=== PATIENT | female | born 1980 | race African-American/Black ===

== ENCOUNTER 2018-03-10 21:13 | Inpatient (IN) | payer BC ==
[~2018-03-10] VITALS: Ht 175.3 cm; Wt 83.9 kg
[2018-03-10 00:45] VITALS: BP 104/72
[2018-03-10 21:30] VITALS: BP 86/69
[2018-03-10] MEDS ORDERED: LEVAQUIN 500 M500 M2 PO (21:38)
[2018-03-10] MEDS ORDERED: PROBIOTIC1 EAC1 PO (21:39)
[2018-03-10 21:56] LABS: ABSOLUTE BASOPHILS 0.1 thou/uL (0.0-0.2); ABSOLUTE EOSINOPHILS 0.4 thou/uL (0.0-0.7); ABSOLUTE LYMPHOCYTES 2.8 thou/uL (0.8-5.3); ABSOLUTE MONOCYTES 0.6 thou/uL (0.0-1.2); ABSOLUTE NEUTROPHILS 3.4 thou/uL (1.6-8.1); BASOPHILS 0.8 %; EOSINOPHILS 5.2 %; HEMATOCRIT 40.7 % (37.0-47.0); HEMOGLOBIN 13.4 gm/dL (12.0-15.0); LYMPHOCYTES 38.9 %; MONOCYTES 7.8 %; NUCLEATED RBCS 0 /100WBC; PLATELET COUNT* 259 thou/uL (150-400); POLYS 47.3 %; RBC 4.62 mil/uL (4.20-5.00); RDW-CV 13.1 % (10.5-14.5); WBC 7.2 thou/uL (4.0-11.0)
[2018-03-10 22:07] LABS: CALCIUM 8.5 mg/dL (8.5-10.1); POTASSIUM 3.8 mmol/L (3.5-5.1)
[2018-03-10 22:12] LABS: ALBUMIN 3.8 g/dL (3.4-5.0); TOTAL BILIRUBIN 0.5 mg/dL (<0.1-1.0); TOTAL PROTEIN 7.8 g/dL (6.4-8.2)
[2018-03-10 23:36] LABS: URINE BILIRUBIN NEGATIVE (Negative); URINE BLOOD NEGATIVE (Negative); URINE CLARITY CLEAR; URINE COLOR YELLOW; URINE GLUCOSE-RANDOM NEGATIVE (Negative); URINE KETONES NEGATIVE (Negative); URINE LEUKOCYTES-REFLEX TRACE (Negative); URINE NITRITE-REFLEX NEGATIVE (Negative); URINE PROTEIN NEGATIVE (Negative); URINE UROBILINOGEN 0.2 E.U./dl (0.2-1.0)
[2018-03-11] VITALS (9 sets, daily range): BP systolic 87–127; BP diastolic 46–86
[2018-03-11 00:06] LABS: CASTS None Seen /LPF (None Seen); SQUAMOUS >10 Many /LPF (0-3)
[2018-03-11 00:07] LABS: BACTERIA-REFLEX 1-9 Few /HPF (None Seen); CRYSTALS None Seen /LPF (None Seen); URINE RBC None Seen /HPF (0-2); URINE WBC-REFLEX 0-5 Rare /HPF (0-5)
[2018-03-11 01:35] LABS: HEMATOCRIT 36.5 % (37.0-47.0); HEMOGLOBIN 11.9 gm/dL (12.0-15.0); MCH 28.9 pg (26.0-34.0); MCHC 32.6 g/dL (28.0-37.0); MCV 88.6 fL (80.0-100.0); MPV 8.1 fl. (7.2-11.1); RBC 4.12 mil/uL (4.20-5.00); RDW-CV 12.9 % (10.5-14.5); WBC 6.8 thou/uL (4.0-11.0)
[2018-03-11 01:58] LABS: ALBUMIN 3.3 g/dL (3.4-5.0); CREATININE 0.9 mg/dL (0.6-1.3); POTASSIUM 3.9 mmol/L (3.5-5.1); TOTAL BILIRUBIN 0.4 mg/dL (<0.1-1.0); TOTAL PROTEIN 6.4 g/dL (6.4-8.2)
--- NOTE | 2018-03-11 02:07 | NUR ---
RECEIVED REPORT AND ASSUMED CARE OF PATIENT UPON ADMISSION TO ROOM 231 AT 0045. ADMISSION HISTORY AND ASSESSMENT COMPLETED CHARTED, VSS. BLOOD PRESSURE SLIGHTLY SOFT 104/72 WITH HR OF 66, CARDIZEM INFUSING AT 2.5 ML/HR. PATIENT REMAINS IN SR ON IMMIGRATION PATROL INSPECTOR. PATIENT DENIES CHEST PAIN AND DISCOMFORT AND SHORTNESS OF AIR. PATIENT ON ROOM AIR WITH SATS 97%. PATIENT ORIENTED TO ROOM AND CALL LIGHT. INSTRUCTED PATIENT TO UTILIZE CALL LIGHT FOR NEEDS, INCLUDING USING THE BATHROOM. PATIENT VERBALIZES UNDERSTANDING. GOAL IS FOR PATIENT TO REMAIN IN SR WITHOUT EPISODES OF SVT AND TOLERATION OF CARDIZEM GTT. CALL LIGHT WITHIN REACH
--- NOTE | 2018-03-11 04:14 | NUR ---
PATIENT WENT INTO SVT ON INBOUND CALL CENTER AGENT AT 0401. VITALS TAKEN AT THIS TIME, VSS. PATIENT ASYMPTOMATIC, DENIES CHEST PAIN, ALTHOUGH PATIENT COULD FEEL HER "HEART FLUTTERING." PATIENT INSTRUCTED TO PERFORM VAGAL MANEUVERS, SUCH BEARING DOWN. VALSALVA MANEUVER WAS SUCCESSFUL. PATIENT NOW IN SR
--- NOTE | 2018-03-11 04:44 | NUR ---
PATIENT HAD ANOTHER EPISODE ON THE CLINICAL TRIAL LEADER BEGINNING AT 417 . EKG OBTAINED AT THIS TIME, READING JUNCTIONAL TACHYCARDIA WITH A RATE OF 133. VALSALVA MANEUVER ATTEMPTED AGAIN WITH NO SUCCESS. CARDIZEM GTT INCREASED TO 10 ML/HR. BLOOD PRESSURE 120/82. PATIENT CONVERTED TO SR AT 0430.
--- NOTE | 2018-03-11 08:15 | NUR ---
PATIENT NOT PROGRESSING TOWARDS GOALS: PATIENT CONTINUES TO GO IN AND OUT OF JUNCTIONAL RHYTHM, RATES UP TO 130'S-140'S AT TIMES. CARDIZEM CONTINUES TO INFUSE AT 10 MG/HR. PATIENT DENIES CHEST PAIN BUT DID HAVE C/O HEADACHE THIS AM, MORPHINE ADMINISTERED WITH RELIEF. REPORT GIVEN TO ONCOMING RN. CALL LIGHT WITHIN REACH
--- NOTE | 2018-03-11 08:30 | NUR ---
ASSUMED CARE OF PT AT 0730. PT LYING IN BED. PT A&0X4, COMPLAINS OF HEADACHE WHICH STATES IS IMPROVING. PT RECEIVED IV MORPHINE PER NOC RN. PT TRACING SVT/ SR ON THE DIRECTOR DECISION SUPPORT. PT CONVERTS TO SR FOR A SHORT PERIOD OF TIME AND THEN BACK INTO SVT. REFER TO EKGS IN CHART. PT CURRENTLY ON CARDIZEM AT 10ML/HR. BLOOD PRESSURES TOLERATING. CARDIOLOGY CONSULT IN PLACE. PT NPO AT THIS TIME. PT ON RA SAT 98%. DENIES ANY SHORTNESS OF BREATH. PT UP SBA TO BATHROOM. PT STATES SHE HAS HAD LEFT RIB PAIN FOR APPROXIMATELY A MONTH. PALPABLE AREA NOTED UNDER LEFT BREAST/RIB AREA. WILL NOTIFY PHYSICIAN WHEN HE ROUNDS THIS AM. AM ASSESSMENT CHARTED. MEDICATIONS PER DEC. PT REPOSITIONS SELF. HOURLY ROUNDING OBSERVED. BED IN LOW POSITION. CALL LIGHT WITHIN REACH. WILL CONTINUE PLAN OF CARE.
--- NOTE | 2018-03-11 09:58 | EKG ---
[place] [address] ELECTROCARDIOGRAM REPORT Name: JOHN BARON Room: [address] ADM IN .R.#: [id number] Admission: 03/10/18 Attend Phys: Gurpreet Hernandes Discharge: Date of : 76 Report #: [id number] THIS REPORT FOR: //name// [facility] ED Test Date: 2018-03-10 Test Time: 21:41:46 Pat Name: JOHN BARON Department: Room: Gender: Systems Coordinator: PERRY : 1980 Requested By: Joanne Cummins Order Number: [id number] MD: Carson Rice Measurements Intervals [place] Rate: 157 P: 0 AK: 308 QRS: 51 QRSD: 69 T: 24 QT: 278 QTc: 450 Interpretive Statements Supraventricular tachycardia No previous ECG available for comparison Electronically Signed On 03-11-2018 9:57:53 CDT by Carson Rice [email or web address] <ELECTRONICALLY SIGNED> By: Carson Rice MD, [facility] 03/11/18 0957 2141 2141 Carson Rice MD, FACC /EPI
--- NOTE | 2018-03-11 09:58 | EKG ---
[place] [address] ELECTROCARDIOGRAM REPORT Name: JOHN BARON Room: [address] ADM IN M.R.#: [id number] Admission: 03/10/18 Attend Phys: Gurpreet Hernandes Discharge: Date of : 76 Report #: [id number] THIS REPORT FOR: //name// [facility] ED Test Date: 2018-03-10 Test Time: 22:02:27 Pat Name: JOHN BARON Department: Room: [address] Gender: F Silk Finisher: PERRY : 1980 Requested By: Joanne Cummins Order Number: [id number] Jing MD: Carson Rice Measurements Intervals [place] Rate: 72 P: 20 NE: 123 QRS: 38 QRSD: 92 T: 48 QT: 360 QTc: 394 Interpretive Statements Sinus rhythm Borderline repolarization abnormality Electronically Signed On 03-11-2018 9:58:43 CDT by Carson Rice [email or web address] <ELECTRONICALLY SIGNED> By: Carson Rice MD, [facility] 03/11/18 0958 2202 2202 Carson Rice MD, FACC /EPI
--- NOTE | 2018-03-11 12:28 | NUR ---
MET WITH PT TO DISCUSS HOME SITUATION/DC PLANNING. PT LIVES WITH HER 2 CHILDREN, 9 AND 15. SHE IS INDEPENDENT AND ACTIVE, USES NO EQUIPMENT. PT FOLLOWS WITH DR PEDERSEN, BUT STATES SHE DID SEE DR ENGLISH'S BEAUTY COUNSELOR RECENTLY TO GET MEDS FILLED. PT PLANS TO RETURN HOME AT DC. DENIES NEEDS
--- NOTE | 2018-03-11 13:05 | NUR ---
Nutrition: Pt admitted with chest pain - no UT, no CHF. Consult received for "poor po." Pt stated she is eating well at lunch. Regular diet ordered. RX noted, jazmyn. Alb 3.3, BG 100. Reweighed pt in bed, 183# today. US ordered outpatient. Pt denied any nutrition questions/concerns. Low nutrition risk.
--- NOTE | 2018-03-11 13:20 | 2DMMODE ---
[place] [address] 2 D/M-MODE ECHOCARDIOGRAM Name: JOHN BARON Room: [address] ADM IN Josefina#: [id number] Admission: 03/10/18 Attend Phys: Amador Fierro Discharge: Date of : 76 Date of Service: 03/11/18 1319 Report #: [id number] THIS REPORT FOR: //name// APPROVED REPORT Study performed: 03/11/2018 11:53:38 EXAM: Comprehensive 2D, Doppler, and color-flow Echocardiogram Patient Location: In-Patient Room #: [facility] Status: routine BSA: 2.00 HR: 52 bpm BP: 106/68 mmHg Rhythm: NSR Other Information Study Quality: Good Indications Abnormal ECG 2D Dimensions LVEF(%): 68.41 (>50%) IVSd: 9.69 (7-11mm) LVOT Diam: 19.84 (18-24mm) LVDd: 43.12 mm PWd: 7.58 (7-11mm) Ascending Ao: 22.41 (22-36mm) LVDs: 26.75 (25-40mm) Aortic Root: 29.01 mm Benavidez's LVEF: 68.41 % Volumes Left Atrial Volume (Systole) LA ESV Index: 27.00 mL/m2 Aortic Valve AoV Peak Brayan.: 1.34 m/s AO Peak Gr.: 7.16 mmHg LVOT Max P.90 mmHg AO Mean Gr.: 3.69 mmHg LVOT Mean P.99 mmHg LVOT Max V: 1.11 m/s AO V2 VTI: 22.53 cm LVOT Mean V: 0.63 m/s TANIA (VTI): 2.79 cm2 LVOT V1 VTI: 20.36 cm Mitral Valve E/A Ratio: 1.59 [place] [address] 2 D/M-MODE ECHOCARDIOGRAM Name: JOHN BARON Room: [address] IN .R.#: [id number] Admission: 03/10/18 Attend Phys: Amador Fierro Discharge: Date of : 76 Date of Service: 03/11/18 1319 Report #: [id number] MV Decel. Time: 232.06 ms MV E Max Brayan.: 0.81 m/s MV PHT: 67.30 ms MVA (PHT): 3.27 cm2 TDI E/Lateral E': 5.40 E/Medial E': 5.79 Medial E' Brayan.: 0.14 m/s Lateral E' Brayan.: 0.15 m/s Pulmonary Valve PV Peak Brayan.: 0.87 m/s PV Peak Gr.: 3.03 mmHg Left Ventricle The left ventricle is normal size. There is normal LV segmental wall motion. There is normal left ventricular wall thickness. Left ventricular systolic function is normal. The left ventricular ejection fraction is within the normal range. LVEF is 55-60%. The left ventricular diastolic function is normal. Right Ventricle The right ventricle is normal size. The right ventricular systolic function is normal. Atria The left atrium size is normal. The right atrium size is normal. Aortic Valve The aortic valve is normal in structure. No aortic regurgitation is present. There is no aortic valvular stenosis. Mitral Valve The mitral valve is normal in structure. There is no mitral valve regurgitation noted. No evidence of mitral valve stenosis. Tricuspid Valve The tricuspid valve is normal in structure. Unable to assess PA pressure. Trace tricuspid regurgitation. Pulmonic Valve The pulmonary valve is normal in structure. Trace pulmonic regurgitation. Great Vessels The aortic root is normal in size. IVC [place] [address] 2 D/M-MODE ECHOCARDIOGRAM Name: JOHN BARON Room: [address] IN .R.#: [id number] Admission: 03/10/18 Attend Phys: Amador Fierro Discharge: Date of : 76 Date of Service: 03/11/18 1319 Report #: [id number] collapses with >50% inspiration Pericardium There is no pericardial effusion. <Conclusion> Left ventricular systolic function is normal. The left ventricular ejection fraction is within the normal range. <ELECTRONICALLY SIGNED> By: Carson Rice MD, FACC 03/11/18 1319 18 18 Carson Rice MD, FACC /INF
--- NOTE | 2018-03-11 13:35 | EKG ---
[place] [address] ELECTROCARDIOGRAM REPORT Name: JOHN BARON Room: [address] ADM IN M.R.#: [id number] Admission: 03/10/18 Attend Phys: Gurpreet Hernandes Discharge: Date of : 76 Report #: [id number] THIS REPORT FOR: //name// [facility] Test Date: 2018-03-11 Test Time: 04:27:01 Pat Name: JOHN BARON Department: Room: [address] Gender: F Manager New Product: TANA : 1980 Requested By: Amador Fierro Order Number: [id number] Reading MD: Carson Rice Measurements Intervals [place] Rate: 133 P: MN: QRS: 54 QRSD: 99 T: 64 QT: 296 QTc: 441 Interpretive Statements Junctional tachycardia Minimal ST depression, lateral leads Compared to ECG 03/10/2018 22:02:27 Junctional tachycardia now present ST (T wave) deviation now present Sinus rhythm no longer present Electronically Signed On 03-11-2018 13:35:16 CDT by Carson Rice [email or web address] <ELECTRONICALLY SIGNED> By: Carson Rice MD, [facility] 03/11/18 1335 0427 0427 Carson Rice MD, [facility] /EPI
--- NOTE | 2018-03-11 16:56 | NUR ---
NO ACUTE CHANGES THROUGHOUT SHIFT. REFER TO CHARTING. PT STARTED ON SOTALOL PER CARDIOLOGY. PT CONVERTED TO SR AND HAS REMAINED IN SR/SB ON THE SECURITY GUARDS DISPATCHER. CARDIZEM GTT DISCONTINUED. PT HAD ECHO TODAY-EF 55-60%. INPT CARDIAC REHAB CONSULTED AND VISITED WITH PT. PT HAD XRAY OF RIBS FOR LEFT RIB/BREAST PAIN- UNREMARKABLE. REFER TO RESULTS. PT COMPLAINS OF HEADACHE, TREATED WITH PRN TYLENOL. REFER TO EMAR. PT ON RA SAT UPPER 90'S. VISITORS AT BEDSIDE THROUGHOUT SHIFT. PT HAD SHOWER INDEPENDENTLY TODAY. MEDICATIONS PER DEC. PT REPOSITIONS SELF. HOURLY ROUNDING OBSERVED. BED IN LOW POSITION. CALL LIGHT WITHIN REACH. WILL CONTINUE PLAN OF CARE.
[2018-03-12] VITALS (7 sets, daily range): BP systolic 105–126; BP diastolic 48–76
--- NOTE | 2018-03-12 05:43 | NUR ---
END SHIFT: PT RESTED WELL. NO COMPLAINTS. NO PAIN. REMAINS SB RATE 50'S. VSS. ASSESSMENT UNCHANGED. FRIEND AT BEDSIDE OVERNIGHT. PLANS TO DC HOME AFTER SOTALOL LOADING. SAFETY PRECAUTIONS IN PLACE. CALL LIGHT IN REACH. WILL CONT TO MONITOR.
--- NOTE | 2018-03-12 11:38 | EKG ---
[place] [address] ELECTROCARDIOGRAM REPORT Name: JOHN BARON Room: [address] ADM IN M.R.#: [id number] Admission: 03/10/18 Attend Phys: Gurpreet Hernandes Discharge: Date of : 76 Report #: [id number] THIS REPORT FOR: //name// [facility] Test Date: 2018-03-12 Test Time: 08:24:32 Pat Name: JOHN BARON Department: Room: [address] Gender: F Counterintelligence Analyst: : 1980 Requested By: Carson Rice Order Number: [id number] Jing MD: Carson Rice Measurements Intervals [place] Rate: 54 P: 60 [place]: 108 QRS: 61 QRSD: 118 T: 56 QT: 467 QTc: 443 Interpretive Statements Sinus bradycardia short pr interval Compared to ECG 03/11/2018 04:27:01 Junctional tachycardia no longer present Electronically Signed On 03-12-2018 11:38:07 CDT by Carson Rice [email or web address] <ELECTRONICALLY SIGNED> By: Carson Rice MD, [facility] 03/12/18 1138 3 3 Carson Rice MD, [facility] /EPI
--- NOTE | 2018-03-12 13:47 | NUR ---
ASSUMED CARE OF PT AT 0730. PT RESTING IN BED. FRIEND AT BEDSIDE. PT A&0X4. COMPLAINS OF HEADACHE, TREATED WITH PRN TYLENOL WITH RELIEF. PT TRACING SB ON THE BUNDLE CUTTER. RATE IN THE 50'S. PT ON SOTALOL LOAD. RECEIVED THIRD DOSE THIS AM. PT ON RA SAT UPPER 90'S. DENIES ANY SHORTNESS OF BREATH. PT UP AD BIBI IN ROOM. AM ASSESSMENT CHARTED. MEDICATIONS PER DEC. PT REPOSITIONS SELF. HOURLY ROUNDING OBSERVED. BED IN LOW POSITION. CALL LIGHT WITHIN REACH. WILL CONTINUE PLAN OF CARE.
--- NOTE | 2018-03-12 18:09 | NUR ---
NO ACUTE CHANGES THROUGHOUT SHIFT. REFER TO CHARTING. PT CONTINUES TO BE ON SOTALOL LOAD. BLOOD PRESSURE STABLE. CONTINUES TO TRACE SB ON THE FULL STACK JAVA DEVELOPER. MONITORING QT INTERVAL. PT REQUESTING SOMETHING FOR YEAST TYPE SYMPTOMS. DR ALEXANDER NOTIFIED. ORDERS RECEIVED FOR MONISTAT AT BEDTIME. PT DENIES ANY PAIN OR SHORTNESS OF BREATH THROUGHOUT AFTERNOON. VISITORS AT BEDSIDE THROUGHOUT SHIFT. PT SHOWERED INDEPENDENTLY TODAY. PT UP AD BIBI. PROGRESSING TOWARDS GOALS. PORBABLE DISCHARGE HOME TOMORROW 03/13. MEDICATIONS PER DEC. PT REPOSITIONS SELF. HOURLY ROUNDING OBSERVED. BED IN LOW POSITION. CALL LIGHT WITHIN REACH. WILL CONTINUE PLAN OF CARE.
--- NOTE | 2018-03-12 19:20 | NUR ---
THIS RN, PT AND PT BOYFRIEND WERE CONVERSATING FOR APPROXIMATELY 15 MINUTES REGARDING WHAT SHE HAS PLANNED WHEN SHE IS DISCHARGED, HOW SHE IS EXCITED TO WORK OUT AGAIN, ALL OF HER VISITORS SHE HAD TODAY COUSIN HAD GRADUATION, ETC. APPROXIMATELY 10 MINUTES AFTER LEAVING PT ROOM, PT CALLED THIS RN STATING SHE FEELS LIKE HER HEART IS RACING AND SHE FEELS PALPITATIONS. BLOOD PRESSURE OBTAINED- 126/48. EKG OBTAINED TRACING SVT. RATE 147. PT ENCOURAGED TO RELAX. PAGE PLACED OUT TO DR TREVINO. CALL RETURNED. ORDERS RECEIVED TO START CARDIZEM GTT-BOLUS OF 15MG AND START AT 5ML/HR. IF BLOOD PRESSURE >100 AND HEART RATE > 120 INCREASE CARDIZEM GTT TO 10ML/HR. DR TREVINO GAVE PERSONAL NUMBER TO CALL IF NEEDED TONIGHT. BOLUS AND CARDIZEM GTT STARTED ON PT. BLOOD PRESSURES REMAIN STABLE AT THIS TIME. PT COMPLAINED OF HEADACHE AND SHORTNESS OF BREATH. HEADACHE TREATED WITH PRN TYLENOL AND PT PLACED ON 2L NC FOR COMFORT. SAT 99%. REPORT GIVEN TO ONCOMING SHIFT.
[2018-03-13] VITALS: BP 104/49
[2018-03-13 04:00] VITALS: BP 93/54
--- NOTE | 2018-03-13 05:12 | NUR ---
PATIENT DILTIAZEM HELD STARTING AT 0400 DUE TO LOW BLOOD PRESSURE, PATIENT ALSO RUNS GRACIA CARDIA AT TIMES.
--- NOTE | 2018-03-13 05:43 | NUR ---
PATIENT RESTED IN BED, NO ACUTE CHANGES. PATIENT DID NOT SHOW SIGNS OF DISTRESS. PATIENT HEART RATE IS SINUS TO SINUS GRACIA. PATIENT DILTIAZEM DRIP HELD AT 0400 DUE TO LOW BLOOD PRESSURE THAT FEW BELOW 100. FALL PRECAUTIONS, IN PLACE, CALL LIGHT WITHIN REACH, HOURLY ROUNIDNG OBSERVED.
[2018-03-13 08:00] VITALS: BP 101/63
--- NOTE | 2018-03-13 11:34 | NUR ---
ASSUMED CARE OF PT AT 0730. PT RESTING IN BED. BOYFRIEND AT BEDSIDE. PT A&0X4. DENIES ANY PAIN OR SHORTNESS OF BREATH AT THIS TIME. PT STATES SHE WANTS THE BEST TREATMENT POSSIBLE AND TO POSSIBLY GO HOME. DR TREVINO HERE TO SEE PT AND STATES PT CAN GO HOME LATER THIS AFTERNOON AFTER RECEIVING SOTALOL AND AMBULATING IN HALLWAY. WILL ALSO MONITOR FOR ADDITIONAL EPISODES OF SVT. PT TRACING SB ON THE SENIOR CYBER SECURITY ANALYST. RATE IN THE 50'S. PT ON RA SAT UPPER 90'S. PT STATED SHE HAD A BOWEL MOVEMENT YESTERDAY-CONSTIPATION HAS IMPROVED. PT UP AD BIBI IN ROOM. AM ASSESSMENT CHARTED. MEDICATIONS PER DEC. PT REPOSITIONS SELF. HOURLY ROUNDING OBSERVED. BED IN LOW POSITION. CALL LIGHT WITHIN REACH. WILL CONTINUE PLAN OF CARE.
[2018-03-13 12:08] VITALS: BP 120/57
[2018-03-13 13:46] VITALS: BP 120/57
[2018-03-13] MEDS ORDERED: SORINE 80 MG TA80 M1 PO (13:52)
[2018-03-13] MEDS ORDERED: TYLENOL325 MG PO (13:53)
--- NOTE | 2018-03-13 14:39 | NUR ---
DISCHARGE ORDERS RECEIVED. DISCHARGE INSTRUCTIONS, CARE NOTES, SCRIPT AND FOLLOW UP APPTS GIVEN TO PT. PT COMMUNICATES UNDERSTANDING OF DISCHARGE TEACHING. IV AND SPEED BELT SANDER REMOVED. PT DISCHARGED WITH ALL BELONGINGS AND PAPERWORK VIA AMBULATORY WITH NURSING STAFF TO BOYFRIENDS PERSONAL CAR.
--- NOTE | 2018-03-13 14:50 | EKG ---
[place] [address] ELECTROCARDIOGRAM REPORT Name: JOHN BARON Room: [address] ADM IN M.R.#: [id number] Admission: 03/10/18 Attend Phys: Gurpreet Hernandes Discharge: Date of : 76 Report #: [id number] THIS REPORT FOR: //name// [facility] Test Date: 2018-03-12 Test Time: 19:14:53 Pat Name: JOHN BARON Department: Room: [address] Gender: F Trauma Coordinator: DOMENIC : 1980 Requested By: Amador Fierro Order Number: [id number] Jing MD: Carson Rice Measurements Intervals [place] Rate: 147 P: 0 PA: QRS: 55 QRSD: 68 T: 88 QT: 296 QTc: 463 Interpretive Statements Supraventricular tachycardia Probable LVH with secondary repol abnrm Compared to ECG 03/12/2018 08:24:32 Sinus bradycardia no longer present Short PA interval no longer present Electronically Signed On 03-13-2018 14:50:08 CDT by Carson Rice [email or web address] <ELECTRONICALLY SIGNED> By: Carson Rice MD, [facility] 03/13/18 1450 13 Carson Rice MD, [facility] /EPI
--- NOTE | 2018-03-13 14:53 | EKG ---
[place] [address] ELECTROCARDIOGRAM REPORT Name: JOHN BARON Room: [address] ADM IN M.R.#: [id number] Admission: 03/10/18 Attend Phys: Gurpreet Hernandes Discharge: Date of : 76 Report #: [id number] THIS REPORT FOR: //name// [facility] Test Date: 2018-03-12 Test Time: 20:15:26 Pat Name: JOHN BARON Department: Room: [address] Gender: F Meat Grinder: ALEXANDER : 1980 Requested By: Amador Fierro Order Number: [id number] Jing MD: Carson Rice Measurements Intervals [place] Rate: 56 P: 32 [place]: 108 QRS: 31 QRSD: 110 T: 33 QT: 449 QTc: 434 Interpretive Statements Sinus bradycardia short pr interval Electronically Signed On 03-13-2018 14:53:15 CDT by Carson Rice [email or web address] <ELECTRONICALLY SIGNED> By: Carson Rice MD, [facility] 03/13/18 1453 14 14 Carson Rice MD, [facility] /EPI
--- NOTE | 2018-03-13 14:59 | EKG ---
[place] [address] ELECTROCARDIOGRAM REPORT Name: JOHN BARON Room: [address] ADM IN M.R.#: [id number] Admission: 03/10/18 Attend Phys: Gurpreet Hernandes Discharge: Date of : 76 Report #: [id number] THIS REPORT FOR: //name// [facility] Test Date: 2018-03-13 Test Time: 08:22:12 Pat Name: JOHN BARON Department: Room: [address] Gender: F Sales Marketing Director: : 1980 Requested By: Cesar Pierson Order Number: [id number] Jing MD: Carson Rice Measurements Intervals [place] Rate: 48 P: 58 [place]: 108 QRS: 49 QRSD: 112 T: 48 QT: 475 QTc: 425 Interpretive Statements Sinus bradycardia Short [place] interval Borderline intraventricular conduction delay Compared to ECG 03/12/2018 08:24:32 No significant changes Electronically Signed On 03-13-2018 14:58:52 CDT by Carson Rice [email or web address] <ELECTRONICALLY SIGNED> By: Carson Rice MD, [facility] 03/13/18 1458 1 1 Carson Rice MD, [facility] /EPI
--- NOTE | 2018-03-13 16:18 | CON ---
[address] [address] CONSULTATION Name: JOHN BARON Room: [address] IN M.R.#: [id number] Admission: 03/10/18 Attend Phys: Gurpreet Hernandes Discharge: 03/13/18 Date of : 76 Report #: [id number] THIS REPORT FOR: //name// CC: Sandra Wong DO Amador Fierro DATE OF SERVICE: 03/11/2018 CARDIOLOGY CONSULTATION HISTORY OF PRESENT ILLNESS: The patient is a 37-year-old single black female who I was asked to see in the hospital after she is noted to be tachycardic. The patient has no previous history of cardiac workup. She has noted in the past, however, she would feel like her heart beating fast, it lasts about a minute and then resolved. She usually takes a deep breath when it occurs. However, yesterday morning, she was at work at her desk when she felt her heart beating fast. It lasted all day long. She felt a little lightheaded and drowsy, but she denied any chest pain, shortness of breath, syncope. She finally came to the Emergency Room last night. She was noted to be in a narrow complex tachycardia at 160 beats per minute. It did appear regular. She was given adenosine and it terminated, however, recurred. She is given additional adenosine. Last night, she was admitted to a monitored bed and had recurrent narrow complex tachycardia. She was started on IV diltiazem. I was asked to see her for further evaluation and treatment. She denied a history of a heart murmur. She denies any exertional dyspnea, edema. She does exercise on a regular basis, going to the gym. She has had no recent fever. She does have a bump on the left side of her chest. Recently has been sore. She was recently placed on levofloxacin. She denied any drainage or redness. PAST MEDICAL HISTORY: She is , last menstrual period was a couple of weeks ago. She has had previous wrist surgery, sinus surgery, tubal ligation. She denied a history of hypertension, diabetes, hyperlipidemia. She is on no chronic medications. ALLERGIES: SHE HAS A PREVIOUS INTOLERANCE TO PENICILLIN AND KEFLEX. FAMILY HISTORY: Her daughter had pulmonic stenosis. Her grandmother had a heart attack. SOCIAL HISTORY: She is , lives with her kids in [place], [place]. She has a desk job. She does not smoke, rarely drinks alcohol. No caffeine. She smokes marijuana occasionally. No IV drugs. REVIEW OF SYSTEMS: She has had no history of stroke, asthma, peptic ulcer disease, liver disease, kidney disease, cancer, psychiatric illness, [place] [address] CONSULTATION Name: JOHN BARON Jad Room: [address] IN M.R.#: [id number] Admission: 03/10/18 Attend Phys: Gurpreet Hernandes Discharge: 03/13/18 Date of : 76 Report #: [id number] skin condition. PHYSICAL EXAMINATION: GENERAL: Revealed a middle-aged female who appeared in no distress. VITAL SIGNS: She had a blood pressure of 120/80, pulse is currently 130. She is afebrile. HEENT: She was anicteric, conjunctivae pink. Mucous members moist. NECK: Veins nondistended. No carotid bruits. Neck was Supple. LUNGS: Clear to auscultation. CARDIOVASCULAR: Regular tachycardia, no significant murmur. CHEST: There were no masses felt, it was somewhat tender. ABDOMEN: Soft. EXTREMITIES: Had no edema. Posterior tibial pulse 2+ bilaterally. IMAGING: Initial ECG showed a narrow complex tachycardia at 160 beats per minute, suggestive of a supraventricular tachycardia. Her workup in the emergency room yesterday, she had a CT scan of the chest using a PE protocol that was unremarkable. LABORATORY DATA: Sodium 141, creatinine 0.9. Liver function studies are normal. TSH 1.6. White blood cell count 6.8, hemoglobin 11.9. Urinalysis, trace leukocytes. IMPRESSION AND RECOMMENDATIONS: 1. Supraventricular tachycardia. Possible AV node reentry tachycardia. At this time, I would recommend starting sotalol. If the patient has recurrent episodes, would consider referral for an ablation. 2. Sore left chest. Unusual area for a lymph node. Suspect trauma. CT scan of the chest was unremarkable. <ELECTRONICALLY SIGNED> By: Carson Rice MD, FACC 03/13/18 1618 0912 [email or web address] Rice MD, FACC /nt
--- NOTE | 2018-03-14 14:10 | NUR ---
Spoke with patient by phone in follow up. She states she is doing well, got her medications filled and is taking them regularly. Denies that she has any episode of SVT, or fluttering feeling in her chest. Has a follow up appoinment scheduled with the digital developer. Has no questions or concerns at thsi time.
[2018-04-07] MEDS ORDERED: UNICOMPLEX M TA1 TA1 PO (07:20)
== END 2018-03-13 14:00 | disposition home or self-care (01) | DRG 310 ==
LOC: M.ERS 21:13 → M.TBA-ER 23:26 → M.2W 23:26
PROVIDERS: Emergency Medicine; ADMIT Internal Medicine
DX: I45.6 Pre-excitation syndrome (principal); R07.81 Pleurodynia; F12.10 Cannabis abuse, uncomplicated; Z79.01 Long term (current) use of anticoagulants; Z79.899 Other long term (current) drug therapy; Z88.1 Allergy status to other antibiotic agents; Z88.0 Allergy status to penicillin; Z83.2 Family history of diseases of the blood and blood-forming organs and certain disorders involving the immune mechanism

== ENCOUNTER 2018-03-21 11:34 | Observation (INO) | payer BC ==
[~2018-03-21] VITALS: Ht 177.8 cm; Wt 80.3 kg
--- NOTE | ~2018-03-21 | H ---
[address] [address] HISTORY AND PHYSICAL Name: JOHN BARON Room: [address] Tyler Burgess#: [id number] Admission: 03/21/18 Attend Phys: Carson Rice MD, F Discharge: 03/22/18 Date of : 76 Report #: [id number] THIS REPORT FOR: //name// For History and Physical please refer to the consultation note in the patient's medical record. By: 0621Medical Records Staff EVI /EHSAN
[~2018-03-21 11:34] MED LIST: LEVAQUIN 500 M500 M2 PO; PROBIOTIC1 EAC1 PO; SORINE 80 MG TA80 M1 PO; TYLENOL325 MG PO
[2018-03-21 11:36] VITALS: BP 124/79
[2018-03-21 11:54] LABS: HEMATOCRIT 39.8 % (37.0-47.0); MCH 29.1 pg (26.0-34.0); MCHC 32.7 g/dL (28.0-37.0); MCV 89.2 fL (80.0-100.0); MPV 8.7 fl. (7.2-11.1); NUCLEATED RBCS 0 /100WBC; PLATELET COUNT* 301 thou/uL (150-400); RBC 4.47 mil/uL (4.20-5.00); RDW-CV 12.8 % (10.5-14.5)
[2018-03-21 11:59] LABS: ANION GAP 7 mmol/L (7-16); BUN 10 mg/dL (7-18); CALCIUM 8.9 mg/dL (8.5-10.1); CHLORIDE 104 mmol/L (98-107); CO2 31 mmol/L (21-32); GLUCOSE 74 mg/dL (70-99); SODIUM 142 mmol/L (136-145)
[2018-03-21 12:05] LABS: ALBUMIN 4.3 g/dL (3.4-5.0); ALKALINE PHOSPHATASE 67 U/L (46-116); LIPASE 81 U/L (73-393); MAGNESIUM 1.8 mg/dL (1.8-2.4); SGOT 17 U/L (15-37); SGPT 18 U/L (30-65); TOTAL BILIRUBIN 0.5 mg/dL (<0.1-1.0); TOTAL PROTEIN 8.3 g/dL (6.4-8.2); TROPONIN-I LEVEL <0.06 ng/mL (<0.06)
[2018-03-21 12:20] LABS: ABSOLUTE BASOPHILS 0.1 thou/uL (0.0-0.2); ABSOLUTE EOSINOPHILS 0.1 thou/uL (0.0-0.7); ABSOLUTE LYMPHOCYTES 2.8 thou/uL (0.8-5.3); ABSOLUTE MONOCYTES 0.5 thou/uL (0.0-1.2); ABSOLUTE NEUTROPHILS 2.6 thou/uL (1.6-8.1); PLATELET ESTIMATE ADEQUATE
--- NOTE | 2018-03-21 15:11 | EKG ---
[place] [address] ELECTROCARDIOGRAM REPORT Name: JOHN BARON Room: [address]R.#: [id number] Admission: 03/21/18 Attend Phys: Carson Rice MD, F Discharge: Date of : 76 Report #: [id number] THIS REPORT FOR: //name// [facility] ED Test Date: 2018-03-21 Test Time: 11:37:46 Pat Name: JOHN BARON Department: Room: Gender: F Collar Padder Blindstitch: [facility] : 1980 Requested By: Donavan Montoya Order Number: [id number] MD: Carson Rice Measurements Intervals [place] Rate: 58 P: 33 [place]: 116 QRS: 47 QRSD: 104 T: 26 QT: 451 QTc: 444 Interpretive Statements Sinus rhythm Borderline short [place] interval Compared to ECG 03/13/2018 08:22:12 rate slowed Electronically Signed On 03-21-2018 15:11:18 CDT by Carson Rice [email or web address] <ELECTRONICALLY SIGNED> By: Carson Rice MD, [facility] 03/21/18 1511 1137 36 Carson Rice MD, FACC /EPI
[2018-03-21 15:25] VITALS: BP 111/58
[2018-03-21 17:08] VITALS: BP 132/59
[2018-03-21 20:00] VITALS: BP 105/55; BP 122/77
[2018-03-22] VITALS: BP 96/57
[2018-03-22 03:45] VITALS: BP 111/56
[2018-03-22 08:21] VITALS: BP 97/58
[2018-03-22 08:37] VITALS: BP 97/58
--- NOTE | 2018-03-22 10:24 | EKG ---
[place] [address] ELECTROCARDIOGRAM REPORT Name: JOHN BARON [address] [id number] Admission: 03/21/18 Attend Phys: Carson Rice MD, F Discharge: Date of : 76 Report #: [id number] THIS REPORT FOR: //name// [facility] Test Date: 2018-03-22 Test Time: 08:10:58 Pat Name: JOHN BARON Department: Room: [place] [address] Gender: F Seasoner: : 1980 Requested By: Carson Rice Order Number: [id number] MD: Carson Rice Measurements Intervals [place] Rate: 39 P: 49 GA: 118 QRS: 60 QRSD: 108 T: 62 QT: 513 QTc: 414 Interpretive Statements Sinus bradycardia Borderline short [place] interval Compared to ECG 03/21/2018 11:37:46 rate slowed Electronically Signed On 03-22-2018 10:24:11 CDT by Carson Rice [email or web address] <ELECTRONICALLY SIGNED> By: Carson Rice MD, [facility] 03/22/18 [facility] 9 9 Carson Rice MD, FACC /EPI
[2018-03-22] MEDS ORDERED: TYLENOL325 MG PO (10:26)
[2018-03-22] MEDS ORDERED: FLECAINIDE ACET50 M1 PO (10:26)
--- NOTE | 2018-03-23 12:51 | CON ---
[address] [address] CONSULTATION Name: JOHN BARON Room: [address] Tyler Burgess#: [id number] Admission: 03/21/18 Attend Phys: Carson Rice MD, F Discharge: 03/22/18 Date of : 76 Report #: [id number] THIS REPORT FOR: //name// CC: Sandra Hassan HISTORY OF PRESENT ILLNESS: The patient is a 37-year-old single black female who came to the Emergency Room complaining of chest pain. The patient has long history of palpitations. She was actually admitted to [facility] on March 10 after she was at work and felt her heart racing and she felt somewhat lightheaded. She came to the Emergency Room at [facility], noted to be a narrow complex tachycardia at 160 beats a minute. It appeared regular. She was given adenosine and terminated. She was started on IV diltiazem. I was asked to see her in consultation. Workup included an echocardiogram which was normal. Thyroid function studies were normal. I thought she had paroxysmal supraventricular tachycardia. She was started on sotalol. She was discharged and actually returned to work. She has a desk job. However, she started jogging again. She has been doing well until yesterday, she felt her heart beating fast at 140 according to her smart watch. She did a vagal maneuver and this slowed her heart rate down. However, today she is at work. She felt tightness in the chest, became nauseated and short of breath. There was no radiation to her arms. There is no relationship to food. She denied any cough or bleeding. She did note some brief fluttering today and felt a little lightheaded. She called my nurse who told her to go to the Emergency Room for admission. PAST MEDICAL HISTORY: Significant for previous wrist surgery, sinus surgery, tubal ligation. She has no history of hypertension, diabetes, hyperlipidemia. MEDICATIONS: Her only current medication includes sotalol twice a day. ALLERGIES: She has previous intolerance to PENICILLIN. FAMILY HISTORY: Her daughter had pulmonic stenosis. SOCIAL HISTORY: She is , lives with her kids in [place], [place]. She has a desk job. She does not smoke or drink alcohol. No caffeine. She smokes marijuana occasionally. No IV drugs. REVIEW OF SYSTEMS: No history of stroke, asthma, peptic ulcer or liver disease, kidney disease, cancer, psychiatric illness, chronic skin condition. PHYSICAL EXAMINATION: GENERAL: A middle-aged -[place] female who appeared in no distress. VITAL SIGNS: She had a blood pressure of 120/80, pulse is 50, she is afebrile. HEENT: She was anicteric, conjunctiva pink. Mucous [place] [address] CONSULTATION Name: JOHN BARON Room: [address] Tyler Burgess#: [id number] Admission: 03/21/18 Attend Phys: Carson Rice MD, F Discharge: 03/22/18 Date of : 76 Report #: [id number] NECK: Veins nondistended. CHEST: Clear to auscultation. NECK: Supple. CARDIOVASCULAR: Regular bradycardia, no significant murmur. ABDOMEN: Soft, nontender. EXTREMITIES: Had no edema. Posterior pulse 2+ bilaterally. SKIN: Warm, dry. NEUROLOGIC: Nonfocal. LABORATORY DATA: Her ECG showed a sinus bradycardia, otherwise unremarkable with no QT prolongation. The patient had an echocardiogram done on March 11 that showed normal left ventricular function and structurally normal valves. Her lab work, sodium 142, potassium 4.0, creatinine 1.0, glucose 74. Liver function studies were normal. Recent TSH was 1.2, T4 0.8. Troponin 0.06. White blood cell count 6.0, hemoglobin 13, hematocrit 39.8. Her chest x-ray done in the Emergency Room today showed normal heart size, clear lung cox. IMPRESSION AND RECOMMENDATIONS: 1. Chest pain. Atypical for angina. Suspect noncardiac. Recommend no further cardiac evaluation. 2. Palpitations. Possible recurrent supraventricular tachycardia. I would recommend increasing sotalol to 120 mg twice a day. 3. Left-sided rib pain. Recent x-ray showed no fracture. <ELECTRONICALLY SIGNED> By: Carson Rice MD, FACC 03/23/18 1251 1334 [email or web address] Rice MD, FACC /nt
--- NOTE | 2018-03-23 12:51 | D ---
[address] [address] DISCHARGE SUMMARY Name: TODJOHN Jad Room: [address] Tyler Burgess#: [id number] Admission: 03/21/18 Attend Phys: Carson Rice MD, F Discharge: 03/22/18 Date of : 76 Report #: [id number] THIS REPORT FOR: //name// CC: Sandra Hassan DATE OF SERVICE: 03/22/2018 DISCHARGE DIAGNOSES: 1. Palpitations. 2. History of paroxysmal supraventricular tachycardia. 3. Chest pain. 4. Headaches. CONSULTANTS: None. PROCEDURES: None. HISTORY OF PRESENT ILLNESS: The patient is a 37-year-old single black female who came to the Emergency Room complaining of chest pain. The patient has a long history of palpitations. She complained of palpitations. She came to the Emergency Room, found to be in a supraventricular tachycardia at 160 beats per minute that appeared regular. She was given adenosine and it terminated. She was started on IV diltiazem. I saw her in consultation. Workup included an echocardiogram that was normal. Thyroid function studies were normal. I thought she had paroxysmal supraventricular tachycardia. She was started on sotalol and discharged. She has done well since her discharge including returning to work and jogging. On the day of admission; however, she felt her heart racing and her smart watch said her heart rate was 140. She did a vagal maneuver and it slowed down. However, she felt tightness in her chest and became nauseated. She came to the Emergency Room and she was admitted. PAST MEDICAL HISTORY: Significant for wrist surgery, sinus surgery, tubal ligation. MEDICATIONS: Only medication includes Sotalol twice a day. ALLERGIES: SHE HAD PREVIOUS INTOLERANCE TO PENICILLIN. PHYSICAL EXAMINATION: VITAL SIGNS: Blood pressure 120/80, pulse 52. CHEST: Clear to auscultation. CARDIOVASCULAR: Regular, bradycardia. ABDOMEN: Soft. EXTREMITIES: [place] [address] DISCHARGE SUMMARY Name: JOHN BARON Jad Room: [address]#: [id number] Admission: 03/21/18 Attend Phys: Carson Rice MD, F Discharge: 03/22/18 Date of : 76 Report #: [id number] SKIN: Warm and dry. LABORATORY DATA: ECG showed sinus bradycardia. LABORATORY DATA: Sodium 142, potassium 4.0, creatinine 1.0, glucose 74. Liver function studies were normal. Recent TSH is 1.2. Troponin was 0.06. White blood cell count 6.0, hemoglobin 13. Chest x-ray, normal heart size, clear lung cox. HOSPITAL COURSE: The patient was admitted to monitored bed, remained in sinus bradycardia. She did complain of a headache without blurred vision or nausea. She did undergo CT scan of the head prior to discharge. The results are pending. Results of the hospitalization were discussed with the patient. It was felt her chest pain was noncardiac. She did undergo a head CT scan because of her headaches. She was given a notice to return to work. She was scheduled to see me in the clinic in 2 weeks for followup. If she develops symptomatic bradycardia, I did discuss perhaps switching her from sotalol to perhaps flecainide or Rythmol. She also requested a referral to Dr. Johns for possible ablation. If she had recurrent palpitations, she was to contact my office. I believe she has a good prognosis from a cardiac standpoint. It was felt that her chest pain was noncardiac. <ELECTRONICALLY SIGNED> By: Carson Rice MD, FACC 03/23/18 1251 0737 [id number] Rice MD, FACC /nt
[2018-04-07] MEDS ORDERED: UNICOMPLEX M TA1 TA1 PO (07:20)
== END 2018-03-22 11:45 | disposition home or self-care (01) ==
LOC: M.ERS 11:34 → M.TBA-ER 13:41 → M.2W 13:41
PROVIDERS: Emergency Medicine Emergency Medical Services; ADMIT Internal Medicine Cardiovascular Disease
DX: I47.1 Supraventricular tachycardia (principal); R00.2 Palpitations; R07.81 Pleurodynia; R07.9 Chest pain, unspecified; R06.02 Shortness of breath; I10 Essential (primary) hypertension; R11.0 Nausea; E11.9 Type 2 diabetes mellitus without complications; E78.5 Hyperlipidemia, unspecified; R51 Headache; Z72.89 Other problems related to lifestyle; Z98.890 Other specified postprocedural states

== ENCOUNTER 2020-11-18 12:56 | Emergency (ER) | payer OTHER ==
[~2020-11-18] VITALS: Ht 177.8 cm; Wt 83.9 kg
[~2020-11-18 12:56] MED LIST changes: +FLECAINIDE ACET50 M1 PO; +UNICOMPLEX M TA1 TA1 PO
[2020-11-18] MEDS ORDERED: LEVOFLOXACIN750 MG PO (14:05)
[2020-11-18] MEDS ORDERED: BUTALB-APAP-CA1 EACH PO (14:05)
[2020-11-18 14:20] VITALS: BP 161/74
== END 2020-11-18 14:21 | disposition home or self-care (01) ==
LOC: M.ERS 12:56
DX: J01.90 Acute sinusitis, unspecified (principal); Z98.51 Tubal ligation status; Z88.0 Allergy status to penicillin; Z88.1 Allergy status to other antibiotic agents

== ENCOUNTER → 2021-05-26 | Outpatient (CLI) | payer OTHER ==
[~2021-05-26] MED LIST changes: +BUTALB-APAP-CA1 EACH PO; +LEVOFLOXACIN750 MG PO
== END ==
LOC: M.RAD 06:54
PROVIDERS: ATTEND Nurse Practitioner Family
DX: Z12.31 Encounter for screening mammogram for malignant neoplasm of breast (principal)